=== PATIENT | male | born 1990 | race Caucasian/White ===

== ENCOUNTER 2018-08-20 05:38 | Emergency (ER) | payer BC ==
[2018-08-20] MEDS ORDERED: IBUPROFEN 400 MG TAB ONE (06:40)
--- NOTE | 2018-08-20 07:15 | ER ---
Nurse's Notes [facility] Name: Damon Mauricio Age: 28 yrs Sex: Male : 1990 Arrival Date: 08/20/2018 Time: 05:48 Bed 17 Private MD: Diagnosis: Acute upper respiratory infection, unspecified Presentation: 08/20 05:56 Presenting complaint: Patient states: cough \T\ sore throat x 3 days. Transition of care: aa1 patient was not received from another setting of care. Onset of symptoms was August 17, 2018. Risk Assessment: Do you want to hurt yourself or someone else? Patient reports no desire to harm self or others. Initial Sepsis Screen: Does the patient meet any 2 criteria? No. Patient's initial sepsis screen is negative. Does the patient have a suspected source of infection? No. Patient's initial sepsis screen is negative. Care prior to arrival: None. 05:56 Method Of Arrival: Ambulatory aa1 05:56 Acuity: JOSE 4 aa1 Historical: - Allergies: 05:59 No Known Allergies; aa1 - Home Meds: 05:59 testosterone enanthate 200 mg/mL intramuscular oil 1 mL every 2 wks [Active]; aa1 - PMHx: 05:59 None; aa1 - PSHx: 05:59 finger sx; aa1 - Immunization history:: Flu vaccine is not up to date. - Social history:: Smoking status: Patient/guardian denies using tobacco. - Ebola Screening: : No symptoms or risks identified at this time. Screenin:00 Abuse screen: Denies threats or abuse. Denies injuries from another. Nutritional aa1 screening: No deficits noted. Tuberculosis screening: No symptoms or risk factors identified. Fall Risk None identified. Assessment: 06:00 General: Appears in no apparent distress. comfortable, Behavior is calm, cooperative, aa1 appropriate for age. Pain: Complains of pain in throat. Neuro: Level of Consciousness is awake, alert, obeys commands, Oriented to person, place, time, situation, Speech is normal. Cardiovascular: Heart tones S1 S2 present Rhythm is regular. Respiratory: Reports cough that is pain with cough Airway is patent Respiratory effort is even, unlabored, Respiratory pattern is regular, symmetrical, Breath sounds are clear bilaterally. GI: No signs and/or symptoms were reported involving the gastrointestinal system. : No signs and/or symptoms were reported regarding the genitourinary system. EENT: Throat is reddened Reports pain when swallowing. Derm: Skin is intact, is healthy with good turgor, Skin is pink, warm \T\ dry. 07:26 Reassessment: Patient appears in no apparent distress at this time. Patient and/or em family updated on plan of care and expected duration. Pain level reassessed. Patient is alert, oriented x 3, equal unlabored respirations, skin warm/dry/pink. Vital Signs: 05:59 BP 132 / 81; Pulse 94; Resp 16; Temp 98.0; Pulse Ox 99% on R/A; Weight 99.34 kg (R); aa1 Height 6 ft. 0 in. (182.88 cm); Pain 7/10; 07:26 BP 126 / 82; Pulse 102; Resp 18; Temp 98.2(O); Pulse Ox 100% on R/A; em 05:59 Body Mass Index 29.70 (99.34 kg, 182.88 cm) aa1 ED Course: 05:48 Patient arrived in ED. es 05:56 Triage completed. aa1 05:59 Arm band placed on right wrist. Patient placed in an exam room, on a stretcher. aa1 06:00 Patient has correct armband on for positive identification. Bed in low position. Call aa1 light in reach. Pulse ox on. NIBP on. 06:15 Brian Gillette PA is PHCP. cp 06:15 Chad Singh MD is Attending Physician. cp 06:37 Flu and/or RSV swab sent to lab. Strep swab sent to lab. aa1 07:18 Ulysses Elias LVN is Primary Nurse. em 07:26 No provider procedures requiring assistance completed. Patient did not have IV access em during this emergency room visit. Administered Medications: 06:35 Drug: Ibuprofen 800 mg Route: PO; aa1 07:10 Follow up: Response: No adverse reaction em Outcome: 07:14 Discharge ordered by . cp 07:26 Discharged to home ambulatory, with family. em 07:26 Condition: good 07:26 Discharge instructions given to patient, family, Instructed on discharge instructions, follow up and referral plans. medication usage, Demonstrated understanding of instructions, follow-up care, medications, Prescriptions given X 3. 07:27 Patient left the ED. em Signatures: Keiry Dove RN RN aa1 Nena Theodore Edgar, KNUCKLE STRAP SEWER KNUCKLE STRAP SEWER em Brian Gillette PA PA cp
--- NOTE | 2018-08-20 07:15 | EDPHYS ---
Physician Documentation [facility] Name: Damon Mauricio Age: 28 yrs Sex: Male : 1990 Arrival Date: 08/20/2018 Time: 05:48 Bed 17 Private MD: ED Physician Chad Singh HPI: 08/20 06:25 This 28 yrs old Male presents to ER via Ambulatory with complaints of Cough, cp Sore Throat. 06:25 The patient or guardian reports cough, that is intermittent, with productive sputum. cp Onset: The symptoms/episode began/occurred 3 day(s) ago. Severity of symptoms: in the emergency department the symptoms are unchanged, despite home interventions. Associated signs and symptoms: Pertinent positives: chest pain, with cough, sore throat, Pertinent negatives: diarrhea, fever, vomiting. Historical: - Allergies: 05:59 No Known Allergies; aa1 - Home Meds: 05:59 testosterone enanthate 200 mg/mL intramuscular oil 1 mL every 2 wks [Active]; aa1 - PMHx: 05:59 None; aa1 - PSHx: 05:59 finger sx; aa1 - Immunization history:: Flu vaccine is not up to date. - Social history:: Smoking status: Patient/guardian denies using tobacco. - Ebola Screening: : No symptoms or risks identified at this time. ROS: 06:28 Constitutional: Negative for fever, poor PO intake. cp 06:28 Eyes: Negative for injury, pain, redness, and discharge. cp 06:28 ENT: Positive for sore throat, Negative for drainage from ear(s), ear pain, difficulty swallowing, difficulty handling secretions. 06:28 Cardiovascular: Positive for chest pain, with cough. 06:28 Respiratory: Positive for cough, Negative for shortness of breath, wheezing. 06:28 Abdomen/GI: Negative for abdominal pain, vomiting, diarrhea, constipation. 06:28 Skin: Negative for rash. 06:28 Neuro: Negative for headache. 06:28 All other systems are negative. Exam: 06:30 Constitutional: The patient appears in no acute distress, alert, awake, non-toxic, well cp developed, well nourished. 06:30 Head/Face: Normocephalic, atraumatic. cp 06:30 Eyes: Periorbital structures: appear normal, Conjunctiva: normal, no exudate, no injection, Lids and lashes: appear normal, bilaterally. 06:30 ENT: External ear(s): are unremarkable, Ear canal(s): are normal, clear, TM's: bulging, is not appreciated, bilaterally, dullness, bilaterally, erythema, is not appreciated, bilaterally, Nose: is normal, Mouth: Lips: moist, Oral mucosa: moist, Posterior pharynx: Airway: no evidence of obstruction, patent, Tonsils: with erythema, no enlargement, no exudate, swelling, is not appreciated, erythema, that is moderate, exudate, is not appreciated, Voice: is hoarse. 06:30 Neck: ROM/movement: is normal, is supple, no meningismus, no nuchal rigidity, Lymph nodes: no appreciated lymphadenopathy. 06:30 Chest/axilla: Inspection: normal, Palpation: is normal, no crepitus, no tenderness. 06:30 Cardiovascular: Rate: normal, Rhythm: regular. 06:30 Respiratory: the patient does not display signs of respiratory distress, Respirations: normal, no use of accessory muscles, no retractions, no splinting, no tachypnea, labored breathing, is not present, Breath sounds: decreased breath sounds, are not appreciated, + upper airway congestion. wheezing: is not appreciated. 06:30 Abdomen/GI: Exam negative for discomfort, distension, guarding, Inspection: abdomen appears normal. Vital Signs: 05:59 BP 132 / 81; Pulse 94; Resp 16; Temp 98.0; Pulse Ox 99% on R/A; Weight 99.34 kg (R); aa1 Height 6 ft. 0 in. (182.88 cm); Pain 7/10; 07:26 BP 126 / 82; Pulse 102; Resp 18; Temp 98.2(O); Pulse Ox 100% on R/A; em 05:59 Body Mass Index 29.70 (99.34 kg, 182.88 cm) aa1 MDM: 06:15 Patient medically screened. cp 07:00 Differential Diagnosis: Influenza Otitis Media Viral Syndrome Pneumonia Other strep cp throat. 07:14 Patient medically screened. cp 07:14 Data reviewed: vital signs, nurses notes, lab test result(s), and as a result, I will cp discharge patient. 07:14 Counseling: I had a detailed discussion with the patient and/or guardian regarding: the cp historical points, exam findings, and any diagnostic results supporting the discharge/admit diagnosis, lab results, to return to the emergency department if symptoms worsen or persist or if there are any questions or concerns that arise at home. 08/20 06:19 Order name: Influenza Screen (a \T\ B); Complete Time: 07:12 08/20 07:12 Interpretation: Reviewed. 08/20 06:19 Order name: Strep; Complete Time: 07:12 08/20 07:12 Interpretation: Reviewed. 08/20 06:55 Order name: Throat Culture EDKS Administered Medications: 06:35 Drug: Ibuprofen 800 mg Route: PO; aa1 07:10 Follow up: Response: No adverse reaction em Disposition: 08/21 07:07 Co-signature as Attending Physician, Chad Singh MD I agree with the assessment and tw4 plan of care. Disposition: 08/20/18 07:14 Discharged to Home. Impression: Acute upper respiratory infection, unspecified. - Condition is Stable. - Discharge Instructions: Upper Respiratory Infection, Adult. - Prescriptions for Ibuprofen 800 mg Oral Tablet - take 1 tablet by ORAL route every 8 hours As needed take with food; 30 tablet. Tessalon Perles 100 mg Oral Capsule - take 1 capsule by ORAL route every 8 hours As needed; 15 capsule. Zithromax Z- Emeterio 250 mg Oral Tablet - take 1 tablet by ORAL route as directed for 5 days Day 1 - take two (2) tablets one time. Day 2, 3, 4 , 5 take one (1) tablet once daily.; 6 tablet. - Medication Reconciliation Form, Thank You Letter, Antibiotic Education, Prescription Opioid Use form. - Follow up: Private Physician; When: 2 - 3 days; Reason: Worsening of condition. - Problem is new. - Symptoms are unchanged. Signatures: Dispatcher [employer] EDKS Keiry Dove RN RN aa1 Ulysses Elias, REFRIGERATING OILER REFRIGERATING OILER Brian Lopez PA PA cp Wadley, Terrence, MD MD tw4 Corrections: (The following items were deleted from the chart) 08/20 07:27 07:14 08/20/2018 07:14 Discharged to Home. Impression: Acute upper respiratory em infection, unspecified. Condition is Stable. Forms are Medication Reconciliation Form, Thank You Letter, Antibiotic Education, Prescription Opioid Use. Follow up: Private Physician; When: 2 - 3 days; Reason: Worsening of condition. Problem is new. Symptoms are unchanged. cp
== END 2018-08-20 07:27 | disposition home or self-care (01) ==
LOC: ER 05:38
DX: J06.9 Acute upper respiratory infection, unspecified (principal)
CPT/HCPCS: 87070; 87081; 87804; 99284